=== PATIENT | female | born 1945 | race Caucasian/White ===

== ENCOUNTER 2018-03-17 07:28 | Inpatient (IN) ==
[2018-03-11 14:18] LABS: Appearance,Urine CLEAR; Bilirubin,Urine NEG (NEG); Color,Urine STRAW; Glucose,Urine (UA) NEGATIVE (NEG); Leukocyte Esterase,Urine NEG /uL (NEG); Protein,Urine NEG (NEG); Specific Gravity,Urine 1.009 (1.000-1.035); Urine Blood NEG mg/dL (<0.03); Urobilinogen,Urine NEG (NEG)
[2018-03-11 15:29] LABS: Basophils # (Auto) 0 K/mcL (0.0-0.3); Basophils % (Auto) 0.4 % (0.0-2.0); Blood Urea Nitrogen 13 mg/dl (8-23); Eosinophils # (Auto) 0.2 K/mcL (0.0-0.7); Granulocytes % (Auto) 66.5 % (38.0-78.0); Lymphocytes # (Auto) 2.1 K/mcL (1.5-4.8); Lymphocytes % (Auto) 25.7 % (15.5-49.0); Mean Cell Volume 98.6 fL (80.0-100.0); Mean Corpuscular HGB Conc 33.1 g/dL (31.0-36.0); Mean Corpuscular Hemoglobin 32.6 pg (26.0-34.0); Monocytes # (Auto) 0.5 K/mcL (0.1-0.9); Monocytes % (Auto) 5.4 % (1.0-12.0); Platelet Count 229 K/mcL (140-440); RBC 4.46 M/mcL (4.00-5.20); Red Cell Distribution Width 14.6 % (11.5-14.5)
[~2018-03-17 07:28] MED LIST: 0.9 % SODIUM CHLORIDE 9 ML, KETOROLAC 30 MG, ROPIVACAINE HCL/PF 49.5 ML, EPINEPHrine 0.... IJ SCH; CELECOXIB 200 MG CAPSULE PO SCH; PREGABALIN 75 MG CAPSULE PO SCH; ceFAZolin 1 GM VIAL IV SCH; oxyCODONE 10 MG TAB.ER.12H PO SCH
[2018-03-17] MEDS ORDERED: PROPOFOL 200 MG/20 ML VIAL IV ONE (09:45)
[2018-03-17] MEDS ORDERED: TRANEXAMIC ACID 1,000 MG/10 ML VIAL IV ONE ×2 (09:45→11:22)
[2018-03-17] MEDS ORDERED: MIDAZOLAM 5 MG/5 ML VIAL IV ONE (09:45)
[2018-03-17] MEDS ORDERED: LIDOCAINE HCL/PF 100 MG/5 ML SYRINGE IV ONE (09:45)
[2018-03-17] MEDS ORDERED: PHENYLEPHRINE 10 MG/ML VIAL IV ONE (09:45)
[2018-03-17] MEDS ORDERED: ePHEDrine 50 MG/ML AMPUL IV ONE (09:45)
[2018-03-17] MEDS ORDERED: DEXAMETHASONE 10 MG/ML VIAL IV ONE (09:45)
[2018-03-17] MEDS ORDERED: GLYCOPYRROLATE 0.2 MG/ML VIAL IV ONE (09:45)
[2018-03-17] MEDS ORDERED: ONDANSETRON 4 MG/2 ML VIAL IV ONE (09:45)
[2018-03-17] MEDS ORDERED: ROPIVACAINE HCL/PF 20 ML VIAL IJ ONE (09:45)
[2018-03-17] MEDS ORDERED: METOPROLOL TARTRATE 5 MG/5 ML VIAL IV PRN (10:37)
[2018-03-17] MEDS ORDERED: METHOCARBAMOL 1,000 MG/10 ML VIAL IV PRN (10:37)
[2018-03-17] MEDS ORDERED: ACETAMINOPHEN 1,000 MG/100 ML BOTTLE IV ONE (10:37)
[2018-03-17] MEDS ORDERED: IPRATROPIUM/ALBUTEROL 3 ML AMPUL.NEB NEB PRN (10:37)
[2018-03-17] MEDS ORDERED: PROMETHAZINE 25 MG/ML VIAL IV PRN (10:37)
[2018-03-17] MEDS ORDERED: ATROPINE SULFATE 0.4 MG/ML VIAL IV PRN (10:37)
[2018-03-17] MEDS ORDERED: FLUMAZENIL 0.1 MG/ML ML IV PRN (10:37)
[2018-03-17] MEDS ORDERED: NALOXONE HCL 0.4 MG/ML VIAL IV PRN (10:37)
[2018-03-17] MEDS ORDERED: fentaNYL 100 MCG/2 ML VIAL IV PRN (10:37)
[2018-03-17] MEDS ORDERED: diphenhydrAMINE 50 MG/ML VIAL IV PRN (10:37)
[2018-03-17] MEDS ORDERED: ONDANSETRON 4 MG/2 ML VIAL IV PRN ×2 (10:37→11:22)
[2018-03-17] MEDS ORDERED: PROMETHAZINE 25 MG/ML VIAL IM PRN (10:37)
[2018-03-17] MEDS ORDERED: MEPERIDINE 25 MG/ML SYRINGE IV PRN (10:37)
[2018-03-17] MEDS ORDERED: ePHEDrine 50 MG/ML AMPUL IV PRN (10:37)
[2018-03-17] MEDS ORDERED: LACTATED RINGERS 1,000 ML IV SCH (10:45)
[2018-03-17] MEDS ORDERED: MAGNESIUM HYDROXIDE 30 ML ORAL.SUSP PO PRN (11:22)
[2018-03-17] MEDS ORDERED: HYDROmorphone 2 MG/ML VIAL IV PRN (11:22)
[2018-03-17] MEDS ORDERED: BISACODYL 10 MG SUPP.RECT PR PRN (11:22)
[2018-03-17] MEDS ORDERED: BENZOCAINE/MENTHOL 1 LOZENGE PO PRN (11:22)
[2018-03-17] MEDS ORDERED: POLYETHYLENE GLYCOL 3350 17 GM PACKET PO PRN (11:22)
[2018-03-17] MEDS ORDERED: FLEETS ADULT ENEMA PR PRN (11:22)
--- NOTE | 2018-03-17 11:22 | Brief Operative Note ---
Date of procedure: 03/17/18 Pre-op diagnosis: Right knee DJD Post-op diagnosis: same Procedure: Right robotic assisted total knee arthroplasty Grafts/Implants: Yes ([place] Triathlon CR 3 femur, 3 tibia, 33 patella, 9mm insert) Anesthesia: spinal, GLMA Findings: arthritis Complications: none Surgeon: Mukesh Crisostomo Wrapper Layer: Imer Roca Estimated blood loss (cc): 30 Specimens Removed/Pathology: none sent Condition: stable Disposition: PACU
--- NOTE | 2018-03-17 12:35 | XRay Report ---
CLINICAL INFORMATION: . Total knee prostheses COMPARISON: None. FINDINGS: Total knee prostheses is anatomically aligned. No osseous abnormality. Periarticular gas and soft tissue swelling seen as expected. IMPRESSION: Negative Interpreted and Authenticated by: Gregorio Martini 03/17/18
[2018-03-17] MEDS: 0.9 % SODIUM CHLORIDE 1,000 ML IV SCH ×2 (12:36→22:07)
[2018-03-17] MEDS: 0.9 % SODIUM CHLORIDE 10 ML SYRINGE IV SCH (12:54)
[2018-03-17] MEDS: KETOROLAC 30 MG/ML VIAL IV SCH ×2 (13:09→17:37)
[2018-03-17] MEDS: oxyCODONE/APAP 5/325MG TABLET PO PRN ×3 (13:33→22:03)
--- NOTE | 2018-03-17 14:23 | Operative Note ---
DATE OF OPERATION: 03/17/2018 PREOPERATIVE DIAGNOSIS: Right knee osteoarthritis. POSTOPERATIVE DIAGNOSIS: Right knee osteoarthritis. PROCEDURE PERFORMED: Right robotic-assisted total knee arthroplasty placing a [place] Triathlon size 3 cruciate retaining femoral component, size 3 tibial baseplate, a 9 mm X3 tibial insert with a 33 mm patellar button. SURGEON: Mukesh Crisostomo M.D. TABLE WORKER: Jossue Roca PA-C. ANESTHESIA: Spinal plus general. DRAINS: None. SPECIMENS: Bone cuts which were discarded. BLOOD LOSS: 30 mL. COMPLICATIONS: None. POSTOPERATIVE CONDITION: Stable. INDICATIONS FOR SURGERY: This is a 72-year-old female who had fairly recently undergone a knee arthroscopy for meniscus tear. She did poorly postoperatively and followup x-rays showed rapid progression of the arthrosis with [id number] articulation. FINDINGS AT SURGERY: Severe osteoarthritis with complete cartilage loss. Post implantation showed good overall limb alignment, patellar tracking, and joint stability. PROCEDURE IN DETAIL: The patient had been seen preoperatively. Informed consent had been obtained after discussion of risks and benefits of surgery. Risks including, but not limited to bleeding, possibly requiring transfusion; infection, possibly requiring implant removal and prolonged IV antibiotics; injury to nerves, blood vessels and other surrounding structures; anesthetic risks; incomplete or no resolution of symptoms; stiffness; swelling; pain; possibility of needing further revision surgery. She understood and wished to proceed. Correct operative site was marked and patient received spinal anesthesia. She was then taken to the operating room and LMA general given. The right lower extremity was then carefully prepped and draped in normal sterile fashion, and a time-out was performed verifying patient name, operative site, and plan. Esmarch was used to exsanguinate the extremity and tourniquet was inflated. Midline incision was made with a scalpel through skin and subcutaneous tissue. Irrisept was irrigated and then a medial parapatellar arthrotomy made. Subperiosteal exposure was done of the anterior medial tibia as well as some release of the deep fibers of the MCL. We then made two stab incisions over the femur and two over the tibia and placed our pins. We then connected the arrays. We placed our femoral and tibial check points. We then did our hip center of rotation. The green probe was used for the medial and lateral malleoli identification. We double-checked our checkpoints with the green probe. The blue probe was then used to do our mapping. After this was completed, osteophytes were removed, and we used the spoons to check our flexion-extension gaps. She was quite tight medially and loose laterally. We ended up placing 3 degrees of varus on the femur and 2 degrees on the tibia. Once we had 17 mm gaps symmetric medial in flexion and extension, we went ahead and used the robotic arm to perform the bone cuts. We then placed our trial components and the knee tracked well. We went ahead and freehand resected the patella and then sized this to a 33 and medialized it maximally. Holes were drilled and a limited lateral facetectomy performed with saw. We checked our patellar tracking which was good, so we went ahead and opened definitive implants. Trial components were removed. Irrisept was irrigated, after a minute cancellous bone was pulse lavaged with saline and then CO2 was used to dry the surfaces. Antibiotic cement was mixed. We cemented the tibia followed by femur. Excess cement was removed and then the 9 insert was impacted into place. The knee was taken into extension and a final inspection and removal of cement was performed. We then cemented the patellar button. While cement was hardening, we went ahead and removed our checkpoints as well as the pins for our arrays. We irrigated the joint with Irrisept. We then injected pain cocktail into the pericapsular and subcutaneous tissues. We then pulse lavaged with saline and then knee was placed in 45 degrees of flexion. A #2 FiberWire [id number] were used around the superior quadrant of the patella, #1 Vicryl [id number] around the inferior quadrant, running #1 Vicryl for the patellar tendon and quad tendon. Final Irrisept irrigation was done, after a minute final pulse lavage and then 2-0 Monocryl for subcutaneous and edin for skin. Xeroform and sterile dressing were applied. Tourniquet was released. The patient was awakened, extubated, and transferred to recovery in stable condition. GREGORY:paul Job ID: [id number] Doc ID: [id number] Mukesh Crisostomo MD
[2018-03-17] MEDS: [UNRECOGNIZED DRUG - OTHER] PO SCH ×2 (15:18→23:51)
[2018-03-17] MEDS: ceFAZolin 1 GM VIAL IV SCH (17:35)
[2018-03-17] MEDS ORDERED: SENNOSIDES 1 TABLET PO SCH (21:00)
[2018-03-17] MEDS: ASPIRIN 325 MG ENTERIC COATED TABLET PO SCH (23:50)
[2018-03-17] MEDS: DOCUSATE SODIUM 100 MG CAPSULE PO SCH (23:50)
[2018-03-17] MEDS: [UNRECOGNIZED DRUG - OTHER] PO SCH (23:51)
[2018-03-18] MEDS: 0.9 % SODIUM CHLORIDE 10 ML SYRINGE IV SCH ×2 (00:21→05:33)
[2018-03-18] MEDS: KETOROLAC 30 MG/ML VIAL IV SCH ×2 (00:41→05:38)
[2018-03-18] MEDS ORDERED: ceFAZolin 1 GM VIAL ONE (04:22)
[2018-03-18] MEDS: ceFAZolin 1 GM VIAL IV SCH (04:26)
[2018-03-18] MEDS: oxyCODONE/APAP 5/325MG TABLET PO PRN ×2 (05:08→09:00)
--- NOTE | 2018-03-18 07:20 | Discharge Summary ---
Providers - Providers Patient information: Note initiated : 03/18/18 at 7:15 am Service Date, if different from initiated Date: [] Patient: Yareli Martinez 72 y/o F admitted on 03/17/18 for Right Total Knee Arthroplasty Akhil. Chief Complaint: [] Discharge date: 03/18/18 Hospitalization Hospital course: Pt was admitted for a R TKA. Pt was admitted on the day of procedure. Pt spent one night on the floor prior to discharge for IV abx, IV pain meds, and PT. Pt will f/u at [facility] in 2 weeks. Will use ASA for DVT prophylaxis. Will attend out- pt PT. Discharge diagnosis: R knee OA Exam - Exam Clean and dry: Yes Weight bearing status: as tolerated Ortho Discharge - TKA - Patient Instructions Diet: Regular Diet Activity: activity as tolerated Total Knee Protocol: For Total Knee: Start ROM GUILLERMINA with stationary bike or rocking chair. Work on gaining full extension of knee. Posterior dislocation precautions provided. Hip abductor strengthening and gait training instructions provided. Apply Cryocuff as instructed. Dressing Care: May shower in 2 days - Follow Up Plan Follow Up Appointments: Imer Roca PA-C [Physician [facility]] - 03/30/18 1:10 pm Disposition: Home, Self-Care Prognosis: Good Rehab Potential: Good Overall status at discharge: patient is progressing back to baseline - Orders For Discharge Prescriptions: Aspirin [Ecotrin] 325 mg PO BID #30 tab.ec HYDROcodone/APAP 10/325MG [Fitzhugh 10-325Mg] 1 - 2 tab PO Q4H PRN #90 tab PRN Reason: Pain Pending Studies Resuscitation Status Full Code Diet Regular Diet Start FriMar 17 1124 Aspirin (Ecotrin) 325 mg PO BID COUNT INCLUDES THE [facility] Last Admin: 03/17/18 23:50 Dose: 325 mg Docusate Sodium (Colace) 100 mg PO BID COUNT INCLUDES THE [facility] Last Admin: 03/17/18 23:50 Dose: 100 mg Hydromorphone HCl (Dilaudid) 0 mg IV Q2HP PRN PRN Reason: PAIN LEVEL > 6 Last Admin: 03/17/18 16:50 Dose: 0.5 mg Sodium Chloride (Sodium Chloride 0.9%) 1,000 mls @ 100 mls/hr IV .Q10H COUNT INCLUDES THE [facility] Last Admin: 03/17/18 22:07 Dose: 100 mls/hr Infusion: 03/17/18 22:07 Dose: 100 mls/hr Admin: 03/17/18 12:36 Dose: 100 mls/hr Ketorolac Tromethamine (Toradol) 30 mg IV Q6 COUNT INCLUDES THE [facility] Stop: 03/19/18 06:01 Last Admin: 03/18/18 05:38 Dose: 30 mg Admin: 03/18/18 00:41 Dose: 30 mg Admin: 03/17/18 17:37 Dose: 30 mg Admin: 03/17/18 13:09 Dose: 30 mg Gammanol Forte 1 tab PO BID COUNT INCLUDES THE [facility] Last Admin: 03/17/18 23:51 Dose: 1 tab Oxycodone/Acetaminophen (Percocet 5-325 Mg) 0 tab PO Q4HP PRN PRN Reason: PAIN LEVEL 3-6 Last Admin: 03/18/18 05:08 Dose: 1 tab Admin: 03/17/18 22:03 Dose: 1 tab Admin: 03/17/18 17:36 Dose: 2 tab Admin: 03/17/18 13:33 Dose: 1 tab Colon Plus 2 dose PO TID COUNT INCLUDES THE [facility] Last Admin: 03/17/18 23:51 Dose: 2 dose Admin: 03/17/18 15:18 Dose: Not Given Senna (Senokot) 2 tab PO HS COUNT INCLUDES THE [facility] Last Admin: 03/17/18 23:51 Dose: 2 tab Sodium Chloride (Saline Flush) 10 ml IV Q8 COUNT INCLUDES THE [facility] Last Admin: 03/18/18 05:33 Dose: Not Given Admin: 03/18/18 00:21 Dose: Not Given Admin: 03/17/18 12:54 Dose: Not Given Shift Summary 03/18/18 02:52 Shift Summary by Manny Arreola Patient alert and oriented. IV with NS @100. Up to bathroom to vd x2 w FWW SBA. Last vd 300 with PVR 543. Tolerating regular diet. AV boots, cryo, using IS. Will call appropriately. Initialized on 03/18/18 02:52 - END OF NOTE
[2018-03-18] MEDS: 0.9 % SODIUM CHLORIDE 1,000 ML IV SCH (08:00)
[2018-03-18] MEDS: ASPIRIN 325 MG ENTERIC COATED TABLET PO SCH (09:00)
[2018-03-18] MEDS ORDERED: LACTOBACILLUS 1 CAPSULE PO SCH (09:00)
[2018-03-18] MEDS: DOCUSATE SODIUM 100 MG CAPSULE PO SCH (09:00)
[2018-03-18] MEDS ORDERED: BROMELAINS 500 MG PO SCH (09:00)
[2018-03-18] MEDS: [UNRECOGNIZED DRUG - OTHER] PO SCH (09:01)
[2018-03-18] MEDS: [UNRECOGNIZED DRUG - OTHER] PO SCH (09:01)
[2018-03-18] MEDS ORDERED: PNEUMOCOCCAL 23-VAL P-SAC VAC 0.5 ML VIAL IM ONE (10:00)
== END 2018-03-18 11:25 | disposition home or self-care (01) | DRG 470 ==
LOC: MEDSUR 07:28
PROVIDERS: ADMIT Orthopaedic Surgery; ATTEND Orthopaedic Surgery